=== PATIENT | female | born 1990 | race African-American/Black ===

== ENCOUNTER 2019-01-01 11:50 | Emergency (ER) | payer MEDICAID ==
[2019-01-01 12:03] VITALS: BP 116/65
[2019-01-01] MEDS ORDERED: IBUPROFEN 800 MG TABLET PO ONE (12:11)
[2019-01-01] MEDS ORDERED: AMOXICILLIN TRIHYD 250 MG CAPSULE PO ONE (12:11)
[2019-01-01] MEDS ORDERED: DIPH/PERTUSS(ACELL)/TETANUS VAC/PF 0.5 ML SYR (>=10YO) IM ONE ×2 (12:11→12:21)
[2019-01-01] MEDS ORDERED: AMOXICILLIN TR/POT CLAVULANATE 500-125 MG TAB PO ONE (12:11)
--- NOTE | 2019-01-01 12:14 | ER Document Report ---
HPI - HPI Patient complains to provider of: Animal bite Time Seen by Provider: 01/01/19 12:07 Onset: Just prior to arrival Onset/Duration: Sudden Quality of pain: Achy Pain Level: 4 Context: Patient was in a client's home and 1 of their dogs bit patient on the right thigh. Animal's immunizations are up-to-date. Patient is uncertain when her last tetanus immunization was. Patient with puncture wound to right lateral thigh area. Associated Symptoms: Other - Right thigh pain Exacerbated by: Movement Relieved by: Denies Similar symptoms previously: No Recently seen / treated by doctor: No - ROS ROS below otherwise negative: Yes Systems Reviewed and Negative: Yes All other systems reviewed and negative - NEURO Neurology: DENIES: Weakness - GASTROINTESTINAL Gastrointestinal: DENIES: Nausea - REPRODUCTIVE Reproductive: DENIES: : - MUSCULOSKELETAL Musculoskeletal: REPORTS: Extremity pain - DERM Skin Color: Normal Skin Problems: Abrasion, Puncture Wound Past Medical History - General Information source: Patient - Social History Smoking Status: Never Smoker Chew tobacco use (# tins/day): No Frequency of alcohol use: Occasional Drug Abuse: None Occupation: graduate assistant Family History: Reviewed & Not Pertinent Patient has suicidal ideation: No Patient has homicidal ideation: No - Medical History Medical History: Negative Surgical Hx: Negative - Immunizations Hx Diphtheria, Pertussis, Tetanus Vaccination: No Vertical Provider Document - CONSTITUTIONAL Agree With Documented VS: Yes Exam Limitations: No Limitations General Appearance: WD/WN, No Apparent Distress - INFECTION CONTROL TRAVEL OUTSIDE OF THE [place] IN LAST 30 DAYS: No - HEENT HEENT: Atraumatic, Normocephalic - NECK Neck: Normal Inspection, Supple - RESPIRATORY Respiratory: Breath Sounds Normal, No Respiratory Distress - CARDIOVASCULAR Cardiovascular: Regular Rate, Regular Rhythm - BACK Back: Normal Inspection - MUSCULOSKELETAL/EXTREMETIES Musculoskeletal/Extremeties: MAEW, FROM, Tender - Tenderness to posterior aspect of right thigh, small abrasion and puncture wounds consistent with reported history of animal bite, no ecchymosis, no active bleeding - NEURO Level of Consciousness: Awake, Alert, Appropriate Motor/Sensory: No Motor Deficit - DERM Integumentary: Warm, Dry Notes: Puncture wound, abrasions to posterior aspect of right thigh, injury measures about 2 cm diameter Course - Re-evaluation Re-evalutation: 01/01/19 12:17 Patient reports that animal's immunizations are up-to-date. Patient advised to follow-up with animal control regarding animals immunization status. Patient encouraged to return to the emergency department if it is determined that she needs the rabies vaccination series at this time. Discussed wound management with patient. Will start patient on short course of prophylactic antibiotics at this time. - Vital Signs Vital signs: Temp Pulse Resp BP Pulse Ox 98.1 F 93 18 116/65 99 01/01/19 11:57 01/01/19 11:57 01/01/19 11:57 01/01/19 11:57 01/01/19 11:57 Discharge - Discharge Clinical Impression: Dog bite Qualifiers: Encounter type: initial encounter Qualified Code(s): W54.0XXA - Bitten by dog, initial encounter Condition: Stable Disposition: HOME, SELF-CARE Instructions: Animal Bites ([facility]), Augmentin ([facility]), Tetanus Immunization Given ([facility]) Additional Instructions: Return immediately for any new or worsening symptoms Followup with your primary care provider, call tomorrow to make a followup appointment Keep wound clean and covered while it continues to heal, monitor for any signs of infection such as redness, streaks, fever, purulent drainage or any concerning symptoms. Follow-up with animal control regarding immunization status of the animal. If it is determined that you need the rabies vaccination series he should come here for that series. Prescriptions: Amox Tr/Potassium Clavulanate [Augmentin 875-125 Tablet] 1 tab PO BID 5 Days tablet Naproxen [Naprosyn 250 Nmg Tablet] 1 tab PO BID #14 tablet Forms: Return to Work Referrals: [facility] [Provider Group] - Follow up as needed
[2019-01-01] MEDS ORDERED: AMOXICILLIN TR/POT CLAVULANATE 500-125 MG TAB ONE (12:21)
[2019-01-01] MEDS ORDERED: IBUPROFEN 800 MG TABLET ONE (12:21)
[2019-01-01] MEDS ORDERED: AMOXICILLIN TRIHYD 250 MG CAPSULE ONE (12:21)
== END 2019-01-01 12:42 | disposition home or self-care (01) ==
LOC: ER 11:50
DX: S71.151A Open bite, right thigh, initial encounter (principal); W54.0XXA Bitten by dog, initial encounter; Y92.009 Unspecified place in unspecified non-institutional (private) residence as the place of occurrence of the external cause; Z23 Encounter for immunization
CPT/HCPCS: 90715; J3490 ×3; 90471; 99283

== ENCOUNTER 2019-02-04 13:22 | Emergency (ER) | payer OTHER, MEDICAID ==
[2019-02-04] MEDS ORDERED: ACETAMINOPHEN 325 MG TABLET PO ONE (13:33)
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
[2019-02-04 14:37] VITALS: BP 120/83
== END 2019-02-04 14:40 | disposition home or self-care (01) ==
LOC: ER 13:22
DX: S29.012A Strain of muscle and tendon of back wall of thorax, initial encounter (principal); R07.89 Other chest pain; M54.9 Dorsalgia, unspecified; V89.2XXA Person injured in unspecified motor-vehicle accident, traffic, initial encounter
CPT/HCPCS: 71046; 72070; 99283